=== PATIENT | male | born 1965 | race Hispanic/Latino ===

== ENCOUNTER → 2023-11-15 | Outpatient (REF) | payer OTHER ==
[~2023-11-15] MED LIST: ACTOS15 MG PO; JARDIANCE25 MG PO; LORAZEPAM INJ 2 MG/ML VIAL ONE; METFORMIN HCL500 MG PO; OMEPRAZOLE40 MG PO; ZESTRIL10 MG PO
== END ==
LOC: MRI 11-05 09:32
PROVIDERS: ATTEND Internal Medicine
DX: M48.062 Spinal stenosis, lumbar region with neurogenic claudication (principal); R29.898 Other symptoms and signs involving the musculoskeletal system; F40.240 Claustrophobia
CPT/HCPCS: 72148; J2060